=== PATIENT | male | born 1940 | race Caucasian/White ===

== ENCOUNTER 2016-08-16 13:26 | Emergency (ER) | payer MEDICARE, OTHER ==
[2016-08-16 13:59] VITALS: BP 138/70
--- NOTE | 2016-08-16 14:15 | UC ---
UC General HPI - HPI Summary HPI Summary: complaint of wound on his right lower leg scrapped it on a stump 5 days ago yesterday it started to hurt and look red denies fever ambulating increase the pain hasn't needed medication for pain - History of Current Complaint Chief Complaint: UCLowerExtremity Stated Complaint: INFLAMED WOUND ON CORDERO Time Seen by Provider: 08/16/16 14:07 Hx Obtained From: Patient - Allergy/Home Medications Allergies/Adverse Reactions: Allergies Allergy/AdvReac Type Severity Reaction Status Date / Time dust mites Allergy Intermediate post nasal Uncoded 08/16/16 13:59 drip pepper Allergy Unknown Unknown Uncoded 08/16/16 13:59 Reaction Details PMH/Surg Hx/FS Hx/Imm Hx Previously Healthy: Yes Endocrine History Of: Denies: Diabetes, Thyroid Disease Cardiovascular History Of: Denies: Cardiac Disorders, Hypertension, Pacemaker/ICD Respiratory History Of: Denies: COPD, Asthma GI/ History Of: Denies: Ulcer Psychological History Of: Reports: Depression - ON MEDICATION FOR - Surgical History Surgical History: Yes Surgery Procedure, Year, and Place: 1941 TONSILECTOMY;. 1957- HEMORROIDECTOMY; . 1992- Rt ACHILLES TENDON REPAIR;. 1997- RADICAL PROSTECTOMY;. BASAL CELLS REMOVED FROM Lt CHEEK. LEFT BICEP TENDON REATTACHMENT 2012 - Family History Known Family History: Positive: Hypertension Negative: Cardiac Disease, Diabetes - Social History Occupation: Retired Lives: With Family Alcohol Use: None Substance Use Type: None Smoking Status (MU): Never Smoked Tobacco - Immunization History Most Recent Influenza Vaccination: fall 2015 Most Recent Tetanus Shot: unknown Review of Systems Constitutional: Negative Skin: Other - cellulitis right leg Eyes: Negative ENT: Negative Respiratory: Negative Cardiovascular: Negative Gastrointestinal: Negative Genitourinary: Negative Motor: Negative Neurovascular: Negative Musculoskeletal: Negative Neurological: Negative Psychological: Negative All Other Systems Reviewed And Are Negative: Yes Physical Exam Triage Information Reviewed: Yes Appearance: No Pain Distress, Well-Nourished Vital Signs: Initial Vital Signs Temp 98.1 F 08/16/16 13:53 Pulse 61 08/16/16 13:53 Resp 12 08/16/16 13:53 BP 138/70 08/16/16 13:53 Pulse Ox 100 08/16/16 13:53 Vital Signs Reviewed: Yes Eyes: Positive: Conjunctiva Clear Neck: Positive: Supple Respiratory: Positive: Lungs clear, Normal breath sounds Cardiovascular: Positive: RRR, No Murmur Musculoskeletal: Positive: No Edema Neurological: Positive: Alert Psychological Exam: Normal Skin: Positive: Other - [id number] area of erythema surrounding scabbed over abrasion Course/Dx - Differential Dx - Multi-Symptom Provider Diagnoses: cellulitis- right lower leg Discharge - Discharge Plan Condition: Stable Disposition: HOME Prescriptions: Sulfamethox/Trimethoprim DS* [Bactrim DS 800/160 TAB*] 1 tab PO BID #14 tab Patient Education Materials: Cellulitis (ED) Referrals: Arsenio Luis MD [Primary Care Provider] - Additional Instructions: Please take antibiotic as directed. If area of redness increases, pain increases or you develop a fever please return to your primary care physician or urgent care Increase fluids and rest Take acetaminophen for fever or pain Please review your discharge instructions. If your symptoms do not improve please call your primary care provider or return to urgent care.
== END 2016-08-16 14:42 | disposition home or self-care (01) ==
LOC: UCEAST 13:26
DX: L03.115 Cellulitis of right lower limb (principal)
CPT/HCPCS: 99212; G0463

== ENCOUNTER 2016-12-15 14:12 | Emergency (ER) | payer OTHER ==
[2016-12-15 14:29] VITALS: BP 142/71
--- NOTE | 2016-12-15 15:11 | UC ---
Eye Complaint HPI - HPI Summary HPI Summary: The patient comes in today for: 1. Left eye pain: Onset: This morning. Palliative/provocative: Blinking makes it worse. Quality: Pressure. Region: Left eye. Severity: 2/10 Time: Comes and goes. Associated symptoms: Vision change: None. Discharge: None. Previous disease: He states he has blepharitis for which he uses a warm compress. Swelling of both ankles: He states that he has had a long history of this. It has gotten worse recently with a recent trip to [place]. He just got back from [place] Monday night. Most of the swelling is of the right foot. It is worse than before. * - History of Current Complaint Chief Complaint: UCEye Stated Complaint: EYE ISSUE Time Seen by Provider: 12/15/16 14:56 Hx Obtained From: Patient - Allergies/Home Medications Allergies/Adverse Reactions: Allergies Allergy/AdvReac Type Severity Reaction Status Date / Time dust mites Allergy Intermediate post nasal Uncoded 12/15/16 14:29 drip pepper Allergy Unknown Unknown Uncoded 12/15/16 14:29 Reaction Details PMH/Surg Hx/FS Hx/Imm Hx Previously Healthy: No Endocrine History Of: Denies: Diabetes, Thyroid Disease, Hyperthyroidism, Hypothyroidism, Dyslipidemia Cardiovascular History Of: Denies: Cardiac Disorders, Hypertension, Pacemaker/ICD, Myocardial Infarction , Congestive Heart Failure, Atrial Fibrillation, Deep Vein Thrombosis, Bleeding Disorders Respiratory History Of: Denies: COPD, Asthma, Bronchitis, Pneumonia, Pulmonary Embolism GI/ History Of: Denies: Gastroesophageal Reflux, Ulcer, Gastrointestinal Bleed, Gall Bladder Disease, Kidney Stones, Diverticulitis, Renal Disease, Urosepsis Neurological History Of: Denies: TIA, CVA, Dementia, Seizures, Migraine Psychological History Of: Reports: Depression - ON MEDICATION FOR Denies: Anxiety, Bipolar Disorder, Schizophrenia, Post Traumatic Stress Disorder Cancer History Of: Reports: Prostate Cancer - He had a prostatectomy. Denies: Lung Cancer, Colorectal Cancer, Breast Cancer, Cervical Cancer Other History Of: Anticoagulant Therapy - Aspirin daily. Negative For: HIV, Hepatitis B, Hepatitis C - Surgical History Surgical History: Yes Surgery Procedure, Year, and Place: 1941 TONSILECTOMY;. 1957- HEMORROIDECTOMY; . 1992- Rt ACHILLES TENDON REPAIR;. 1997- RADICAL PROSTECTOMY;. BASAL CELLS REMOVED FROM Lt CHEEK. LEFT BICEP TENDON REATTACHMENT 2012. Bilateral cataract surgery. - Family History Known Family History: Positive: Hypertension Negative: Cardiac Disease, Diabetes - Social History Occupation: Employed Full-time Alcohol Use: None Substance Use Type: None Smoking Status (MU): Never Smoked Tobacco - Immunization History Most Recent Influenza Vaccination: fall 2015 Most Recent Tetanus Shot: unknown Review of Systems Constitutional: Negative Skin: Negative Eyes: Negative ENT: Negative Respiratory: Negative Cardiovascular: Negative Gastrointestinal: Negative Genitourinary: Negative Motor: Negative All Other Systems Reviewed And Are Negative: Yes Physical Exam Triage Information Reviewed: Yes Appearance: Well-Appearing, No Pain Distress, Well-Nourished Vital Signs: Initial Vital Signs Temp 96.9 F 12/15/16 14:20 Pulse 67 12/15/16 14:20 Resp 14 12/15/16 14:20 BP 142/71 12/15/16 14:20 Pulse Ox 98 12/15/16 14:20 Vital Signs Reviewed: Yes Eyes: Positive: Conjunctiva Clear, Other: - No redness or swelling of either upper or lower eye lids. There is minimal tenderness along the lower lateral left eye lid.. Negative: Discharge ENT: Positive: Hearing grossly normal. Negative: Pharyngeal erythema, Nasal congestion, Nasal drainage, TM bulging, TM dull, TM red, Tonsillar swelling, Tonsillar exudate Dental: Negative: Gross Decay/Caries @, Dental Fracture @ Neck: Positive: Supple, Nontender, No Lymphadenopathy. Negative: Nuchal Rigidity Respiratory: Positive: Chest non-tender, Lungs clear, No respiratory distress, No accessory muscle use. Negative: Rhonchi, Wheezing Cardiovascular: Positive: RRR, No Murmur Abdomen Description: Positive: Nontender, No Organomegaly, Soft. Negative: Distended, Guarding Musculoskeletal: Positive: Strength Intact, ROM Intact, No Edema, Other: - Right leg: No obvious edema that is more than what I would expect in a 76 year old man. Calf circumference at 28 cm up from the medial malleolus: 39. There is tenderness to palpation of the right calf posteriorly, but not behind the knee or of the inner middle thigh. Left leg: No obvious edema that is more than waht I would expect for a 76 year old man. Calf circumference at 28 cm up from medial malleolus) was 38.5 cm. Neurological: Positive: Alert, Muscle Tone Normal Psychological: Positive: Age Appropriate Behavior, Consolable Skin: Negative: rashes, breakdown Eye Complaint Course/Dx - Course Course Of Treatment: Patient was told that we are not able to rule out a DVT here and recommended that he go to the ER. He refused. He was told that I did not see evidence for a stye, but if it goyal develop and it drains inward causing the white part of the eye to turn red, antibiotic drops may be helpful. He stated that he would like antibiotic eye drops in the event this develops. - Differential Dx/Diagnosis Differential Diagnosis/HQI/PQRI: Conjunctivitis Provider Diagnoses: Early stye left lower lateral eye lid. rule out Right DVT of the lower leg. Discharge - Discharge Plan Condition: Stable Disposition: HOME Patient Education Materials: Stye (ED) Referrals: No Primary Care Phys,NOPCP [Primary Care Provider] - 1 Week (Please see your primary care provider in several days to a week to see how well you are doing. If you don't have a primary care provider, please contact the physicians referral phone line to help you get one. If you can't get in timely, you can always come back to see us.) [facility] [Outside] Additional Instructions: If you are not going to the ER as requested to be evaluated for a possible blood clot in your right lower leg, please re-consider if you get worse. If you don't go to the ER, please see your primary care provider as soon as you can for re-evaluation.
== END 2016-12-15 15:40 | disposition left against medical advice (07) ==
LOC: UCEAST 14:12
DX: H00.015 Hordeolum externum left lower eyelid (principal); M79.89 Other specified soft tissue disorders; M79.661 Pain in right lower leg; Z79.82 Long term (current) use of aspirin; F32.9 Major depressive disorder, single episode, unspecified
CPT/HCPCS: 99213; G0463

== ENCOUNTER 2017-03-07 10:06 | Emergency (ER) | payer OTHER ==
[2017-03-07 10:43] VITALS: BP 150/69
--- NOTE | 2017-03-07 12:57 | UC ---
Skin Complaint HPI - HPI Summary HPI Summary: TWO DAYS OF PAIN AND SWELLING AROUND RIGHT THUMBNAIL. NO FEVER. NO DISCHARGE. NO KNOWN TRAUMA - History of Current Complaint Chief Complaint: UCSkin Time Seen by Provider: 03/07/17 11:20 Stated Complaint: RED AREA ON THUMB Hx Obtained From: Patient, Family/Account Administrator Onset/Duration: Gradual Onset, Lasting Days, Still Present Skin Exposure Onset/Duration: Days Ago Onset Severity: Mild Current Severity: Mild Pain Intensity: 0 Pain Scale Used: 0-10 Numeric Location: Discrete - RIGHT THUMB NAIL Character: Swelling, Redness, Raised Aggravating: Nothing Alleviating: Nothing Associated Signs & Symptoms: Positive: Tenderness, Red Streaks. Negative: Fever , Chills, Cough, Wheezing, Chest Pain, Hoarseness, Throat Tightening, Rash, Syncope, Drainage, Joint Swelling - Allergy/Home Medications Allergies/Adverse Reactions: Allergies Allergy/AdvReac Type Severity Reaction Status Date / Time dust mites Allergy Intermediate post nasal Uncoded 03/07/17 10:36 drip pepper Allergy Unknown Unknown Uncoded 03/07/17 10:36 Reaction Details Review of Systems Constitutional: Negative Skin: Other - TENDERNESS SWELLING REDNESS AT CUTUCLE OF RIGHT THUMBNAIL Eyes: Negative ENT: Negative Respiratory: Negative Cardiovascular: Negative Gastrointestinal: Negative Genitourinary: Negative Motor: Negative Neurovascular: Negative Musculoskeletal: Negative Neurological: Negative Psychological: Negative All Other Systems Reviewed And Are Negative: Yes PMH/Surg Hx/FS Hx/Imm Hx Previously Healthy: Yes Other History Of: Anticoagulant Therapy - Aspirin daily. Negative For: HIV, Hepatitis B, Hepatitis C - Surgical History Surgical History: Yes Surgery Procedure, Year, and Place: 1941 TONSILECTOMY;. 1957- HEMORROIDECTOMY; . 1992- Rt ACHILLES TENDON REPAIR;. 1997- RADICAL PROSTECTOMY;. BASAL CELLS REMOVED FROM Lt CHEEK. LEFT BICEP TENDON REATTACHMENT 2012. Bilateral cataract surgery. - Family History Known Family History: Positive: Hypertension Negative: Cardiac Disease, Diabetes - Social History Occupation: Employed Full-time Lives: With Family Alcohol Use: None Substance Use Type: None Smoking Status (MU): Never Smoked Tobacco - Immunization History Most Recent Influenza Vaccination: fall 2015 Most Recent Tetanus Shot: unknown Physical Exam Triage Information Reviewed: Yes Appearance: Well-Appearing, No Pain Distress, Well-Nourished Vital Signs: Initial Vital Signs Temp 97.8 F 03/07/17 10:37 Pulse 50 03/07/17 10:37 Resp 16 03/07/17 10:37 BP 150/69 03/07/17 10:37 Pulse Ox 99 03/07/17 10:37 Vital Signs Reviewed: Yes Eye Exam: Normal ENT Exam: Normal ENT: Positive: Normal ENT inspection, Hearing grossly normal, Pharynx normal, TMs normal Dental Exam: Normal Neck exam: Normal Neck: Positive: Supple, Nontender, No Lymphadenopathy Respiratory Exam: Normal Respiratory: Positive: Chest non-tender, Lungs clear, Normal breath sounds, No respiratory distress Cardiovascular Exam: Normal Cardiovascular: Positive: RRR, No Murmur, Pulses Normal Abdominal Exam: Normal Musculoskeletal Exam: Normal Musculoskeletal: Positive: Strength Intact, ROM Intact, No Edema Neurological Exam: Normal Psychological Exam: Normal Psychological: Positive: Normal Response To Family Skin: Positive: Other - TENDERNESS SWELLING REDNESS AT CUTUCLE OF RIGHT THUMBNAIL Course/Dx - Differential Diagnoses - Skin Complaint Differential Diagnoses: Abscess, Cellulitis, Impetigo - Diagnoses Provider Diagnoses: RIGHT THUMB PARONYCHIA Discharge - Discharge Plan Condition: Stable Disposition: HOME Prescriptions: Amoxicillin/Clavulanate TAB* [Augmentin TAB 875*] 875 mg PO BID #20 tab Patient Education Materials: Paronychia (ED) Referrals: [facility] [Outside] No Primary Care Phys,NOPCP [Primary Care Provider] -
== END 2017-03-07 12:06 | disposition home or self-care (01) ==
LOC: UCEAST 10:06
DX: L03.011 Cellulitis of right finger (principal); Z79.82 Long term (current) use of aspirin; Z85.828 Personal history of other malignant neoplasm of skin
CPT/HCPCS: 10060; 87070; 87077; 87186; 87205; 99212; G0463

== ENCOUNTER 2017-04-23 15:22 | Emergency (ER) | payer OTHER ==
[2017-04-23 15:42] VITALS: BP 134/70
--- NOTE | 2017-04-23 16:08 | UC ---
Eye Complaint HPI - HPI Summary HPI Summary: 77 YEAR OLD MALE PRESENTS WITH BILATERAL EYE REDNESS/ITCHINESS AND TEARING. - History of Current Complaint Chief Complaint: UCEye Stated Complaint: EYE IRRITATION Time Seen by Provider: 04/23/17 16:03 Hx Obtained From: Patient Onset/Duration: Sudden Onset Timing: Constant Severity Initially: Moderate Severity Currently: Moderate Pain Scale Used: 0-10 Numeric - 2 Location of Injury: Conjunctiva - Allergies/Home Medications Allergies/Adverse Reactions: Allergies Allergy/AdvReac Type Severity Reaction Status Date / Time dust mites Allergy Intermediate post nasal Uncoded 04/23/17 15:43 drip pepper Allergy Unknown Unknown Uncoded 04/23/17 15:43 Reaction Details PMH/Surg Hx/FS Hx/Imm Hx Previously Healthy: Yes Other History Of: Anticoagulant Therapy - Aspirin daily. Negative For: HIV, Hepatitis B, Hepatitis C - Surgical History Surgical History: Yes Surgery Procedure, Year, and Place: 1941 TONSILECTOMY;. 1957- HEMORROIDECTOMY; . 1992- Rt ACHILLES TENDON REPAIR;. 1997- RADICAL PROSTECTOMY;. BASAL CELLS REMOVED FROM Lt CHEEK. LEFT BICEP TENDON REATTACHMENT 2012. Bilateral cataract surgery. - Family History Known Family History: Positive: Hypertension Negative: Cardiac Disease, Diabetes - Social History Alcohol Use: Rare Substance Use Type: Prescribed Smoking Status (MU): Never Smoked Tobacco - Immunization History Most Recent Influenza Vaccination: fall 2015 Most Recent Tetanus Shot: unknown Review of Systems Constitutional: Negative Skin: Negative Eyes: Drainage, Eye Redness ENT: Negative Respiratory: Negative Cardiovascular: Negative Gastrointestinal: Negative Genitourinary: Negative Motor: Negative Neurovascular: Negative Musculoskeletal: Negative Neurological: Negative Psychological: Negative All Other Systems Reviewed And Are Negative: Yes Physical Exam Triage Information Reviewed: Yes Appearance: Well-Appearing Vital Signs: Initial Vital Signs Temp 36.9 C 04/23/17 15:38 Pulse 95 04/23/17 15:38 Resp 18 04/23/17 15:38 BP 134/70 04/23/17 15:38 Pulse Ox 99 04/23/17 15:38 Vital Signs Reviewed: Yes Eyes: Positive: Conjunctiva Inflamed, Discharge ENT Exam: Normal Dental Exam: Normal Neck exam: Normal Neck: Positive: 1 Respiratory Exam: Normal Cardiovascular Exam: Normal Abdominal Exam: Normal Musculoskeletal Exam: Normal Neurological Exam: Normal Psychological Exam: Normal Skin Exam: Normal Eye Complaint Course/Dx - Differential Dx/Diagnosis Provider Diagnoses: ALLERGIC CONJUNCTIVITIS Discharge - Discharge Plan Condition: Stable Disposition: HOME Prescriptions: Tobramycin/Dexameth OPTH.SUSP* [Tobradex 0.3-0.1%*] 1 drop BOTH EYES Q4H #1 btl Referrals: Pippa Peters MD [Primary Care Provider] -
== END 2017-04-23 16:17 | disposition home or self-care (01) ==
LOC: UCEAST 15:22
DX: H10.10 Acute atopic conjunctivitis, unspecified eye (principal)
CPT/HCPCS: 99212; G0463

== ENCOUNTER 2017-07-08 10:48 | Emergency (ER) | payer OTHER ==
[2017-07-08 11:04] VITALS: BP 128/67
--- NOTE | 2017-07-08 11:42 | UC ---
Matteo Mckeon Thomas, [facility] on 07/08/17 at 1114 . Skin Complaint HPI - HPI Summary HPI Summary: In Room Note: The patient is a 77 year old male presenting to Urgent Care with concerns for cellulitis. He suspects that he nicked his finger a few weeks ago. He has a small scab to the base of his left index finger as well as a small mildly erythematous area. The patient denies any pain to the area--no pain at rest or with movement. However, he does note that the area feels warm. Patient denies nausea, vomiting, and diarrhea. MD Note: Left hand injury. VSS, afebrile, BP 128/68, Pulse Ox 100. Non-smoker. Visit history: paronychia right thumbnail in February 2017, treated with Augmentin. Prostatectomy. He is on aspirin. Nurses Note: he states that he thinks he has cellulitis. he knicked his left hand a few eeks ago. there is a scab and a bruise. - History of Current Complaint Chief Complaint: UCSkin Time Seen by Provider: 07/08/17 11:06 Stated Complaint: SWOLLEN BRUISED LEFT HAND Hx Obtained From: Patient Onset/Duration: Lasting Weeks - a few, Still Present Timing: Constant Current Severity: Moderate Pain Intensity: 0 Pain Scale Used: 0-10 Numeric Location: Other - Index finger of left hand Character: Redness Aggravating Factor(s): Nothing Alleviating Factor(s): Nothing Associated Signs & Symptoms: Negative: Nausea, Vomiting - Allergy/Home Medications Allergies/Adverse Reactions: Allergies Allergy/AdvReac Type Severity Reaction Status Date / Time dust mites Allergy Intermediate post nasal Uncoded 07/08/17 11:04 drip pepper Allergy Unknown Unknown Uncoded 07/08/17 11:04 Reaction Details Review of Systems Constitutional: Other - NEGATIVE: fever Skin: Other - Small scab, small area of erythema to left index finger Is Patient Immunocompromised?: No All Other Systems Reviewed And Are Negative: Yes - Comments Additional Review of Systems Comments: A 12 point review of systems was completed and significantly positive for: small scab and area of erythema. The remainder of the review was negative except as stated above in the HPI. PMH/Surg Hx/FS Hx/Imm Hx Previously Healthy: No - Paronychia, Prostate Cancer Psychological History: Depression Other History Of: Anticoagulant Therapy - Aspirin daily. Negative For: HIV, Hepatitis B, Hepatitis C - Surgical History Surgical History: Yes Surgery Procedure, Year, and Place: 1941 TONSILECTOMY;. 1957- HEMORROIDECTOMY; . 1992- Rt ACHILLES TENDON REPAIR;. 1997- RADICAL PROSTECTOMY;. BASAL CELLS REMOVED FROM Lt CHEEK. LEFT BICEP TENDON REATTACHMENT 2012. Bilateral cataract surgery. - Family History Known Family History: Positive: Hypertension Negative: Cardiac Disease, Diabetes - Social History Occupation: Employed Full-time Alcohol Use: Rare Substance Use Type: Prescribed Smoking Status (MU): Never Smoked Tobacco - Immunization History Most Recent Influenza Vaccination: fall 2015 Most Recent Tetanus Shot: unknown Physical Exam Triage Information Reviewed: Yes Vital Signs: Initial Vital Signs Temp 97.2 F 07/08/17 11:00 Pulse 60 07/08/17 11:00 Resp 16 07/08/17 11:00 BP 128/67 07/08/17 11:00 Pulse Ox 100 07/08/17 11:00 Vital Signs Reviewed: Yes - Additional Comments Appearance: The patient is well-appearing, is in no pain distress, and is well- nourished. Eyes: Conjunctiva are clear. ENT: The hearing is grossly normal, the pharynx is normal, and the TMs are normal. There is no muffled or hoarse voice. Neck: The neck is supple and nontender. Respiratory: The chest is nontender. The lungs are clear, there are normal breath sounds, and there is no respiratory distress. Cardiovascular: Heart is regular rate and rhythm. There is no murmur. Abdomen: The abdomen is soft and nontender. There is no organomegaly. Bowel sounds: present Musculoskeletal: Strength is intact. The patient moves all extremities. Neurological: The patient is alert. Psychological: The patient displays age appropriate behavior Skin: There is a 3.0 cm mildly erythematous area over the radial aspect of the proximal phalanx of the left index finger. There is a 3.0 mm crusted lesion over the dorsum of the MCP joint. There is no evidence of extension to the flexor tendons or ascending cellulitis or lymphangitis. Course/Dx - Course Course Of Treatment: The area in question on the left index finger is mildly erythematous, but I discussed with the patient that this may not be cellulitis. He does have Raynauds phenomenon, and this mildly erythematous area may be related to that. However, because of the patients previous history of cellulitis and paronychia, I started the patient on Keflex for five days and instructed him to do warm soaks if the erythema is not resolved. Patient is Urgent/Emergent. BP elevated due to current condition w/o HTN in past medical history. Patient has been given an antibiotic because findings of physical examination and health history. The risks and benefits of these risks including the possibility of developing clostridium difficile enterocolitis. Medications have been included in the original chart and reviewed. - Differential Diagnoses - Skin Complaint Differential Diagnoses: Cellulitis, Other - Raynaud's phenomenon, contusion - Diagnoses Provider Diagnoses: Localized cellulitis, left index finger Discharge - Discharge Plan Condition: Stable Disposition: HOME Prescriptions: Cephalexin CAP* [Keflex 500 CAP*] 500 mg PO QID #20 cap MDD 4 Patient Education Materials: Cellulitis (ED), Raynaud Disease (ED) Referrals: Pippa Peters MD [Primary Care Provider] - Additional Instructions: Thank you for helping us improve patient care by filling out the My Point Survey. WE DISCUSSED: 1. Based on your examination and history of previous cellulitis, I recommend that you start an antibiotic, 4 times a day for 5 days. Also, warm, moist heat to the area. 2. This should resolve over the next few days. If not, it may be related to your Raynaud's. It should be rechecked if still present in a week. 3. Recheck at any time for increased pain, temperature, swelling, redness, red lines going up arm, decreasing ability to move your finger. PLEASE SEEK CARE AT THE EMERGENCY DEPARTMENT IF SYMPTOMS WORSEN OR IF NEW SYMPTOMS DEVELOP. FOLLOW UP WITH YOUR PRIMARY CARE PHYSICIAN, NEEDED. The documentation as recorded by the Matteo leos Thomas accurately reflects the service I personally performed and the decisions made by , Alfredo Jaramillo MD.
== END 2017-07-08 11:45 | disposition home or self-care (01) ==
LOC: UCEAST 10:48 → CHOAEAST 10:48
DX: L03.012 Cellulitis of left finger (principal)
CPT/HCPCS: 99212; G0463

== ENCOUNTER 2018-06-01 10:25 | Emergency (ER) | payer OTHER ==
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
[2018-06-01 13:34] VITALS: BP 142/70
== END 2018-06-01 14:10 | disposition home health service (06) ==
LOC: UCEAST 10:25
DX: M79.89 Other specified soft tissue disorders (principal); Z91.018 Allergy to other foods; Z91.048 Other nonmedicinal substance allergy status; Z79.82 Long term (current) use of aspirin
CPT/HCPCS: 99212; G0463

== ENCOUNTER 2018-06-01 14:34 | Emergency (ER) | payer OTHER ==
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
[2018-06-01 18:24] VITALS: BP 128/79
== END 2018-06-01 18:00 | disposition home or self-care (01) ==
LOC: ED 14:34
DX: S89.91XA Unspecified injury of right lower leg, initial encounter (principal); S80.211A Abrasion, right knee, initial encounter; S09.90XA Unspecified injury of head, initial encounter; V09.9XXA Pedestrian injured in unspecified transport accident, initial encounter; Y93.01 Activity, walking, marching and hiking; Y92.410 Unspecified street and highway as the place of occurrence of the external cause
CPT/HCPCS: 70450; 99282

== ENCOUNTER 2018-06-06 15:17 | Inpatient (IN) | payer MEDICARE, OTHER ==
[2018-06-06] MEDS ORDERED: Acetaminophen TAB* 325 MG PO PRN (17:13)
[2018-06-06 17:35] LABS: ABS Basophils 0.1 10^3/ul (0-0.2); ABS Eosinophils 0.2 10^3/ul (0-0.6); ABS Lymphocytes 1.1 10^3/ul (1.0-4.8); ABS Monocytes 0.9 10^3/ul (0-0.8); ABS Neutrophils 6.2 10^3/ul (1.5-7.7); ABS Nucleated RBC 0 10^3/ul; Eosinophil % 1.8 % (0-6); Hematocrit 42 % (42-52); Hemoglobin 14.6 g/dl (14.0-18.0); Lymphocyte % 13.5 % (25-47); Mean Corpuscular HGB Conc 35 g/dl (31-36); Mean Corpuscular Hemoglobin 31 pg (27-31); Mean Corpuscular Volume 88 fL (80-94); Mean Platelet Volume 9.3 fL (7.4-10.4); Nucleated Red Blood Cells % 0.1; Platelet Count 138 10^3/ul (150-450); Red Blood Count 4.73 10^6/ul (4.00-5.40); Red Cell Distribution Width 14 % (10.5-15); White Blood Count 8.4 10^3/ul (3.5-10.8)
[2018-06-06 17:54] LABS: EGFR Non-African American 78.4 (>60)
[2018-06-06] MEDS ORDERED: traMADol TAB* 50 MG PO PRN (18:22)
[2018-06-06] MEDS ORDERED: Ondansetron INJ* 2 MG/ML VIAL IV PRN (18:22)
[2018-06-06] MEDS ORDERED: Vancomycin(*) 1,500 MG in NS 0.9% 250 ML* 250 ML IVPB ONE (18:45)
[2018-06-06] MEDS ORDERED: Vancomycin per Pharmacy* NOTE FOLLOW UP SCH (19:00)
[2018-06-06] MEDS: NS 0.9% 1000 ML* 1,000 ML IV SCH (19:02)
[2018-06-06 19:46] LABS: Urine Appearance Clear; Urine Blood Negative (Negative); Urine Color Yellow; Urine Ketones Negative (Negative); Urine Protein Negative (Negative); Urine Specific Gravity 1.011 (1.010-1.030); Urine Urobilinogen Negative (Negative)
[2018-06-06 20:11] LABS: INR 0.86 (0.77-1.02)
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
[2018-06-06] MEDS: Heparin VIAL(*) 5000 UNITS/ML VIAL (FIVE THOUSAND) SUBCUT SCH (22:06)
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
[2018-06-07] MEDS: Vancomycin(*) 750 MG in NS 0.9% 250 ML* 250 ML IVPB SCH ×4 (04:23→21:58)
[2018-06-07] MEDS: Heparin VIAL(*) 5000 UNITS/ML VIAL (FIVE THOUSAND) SUBCUT SCH ×3 (06:13→21:58)
[2018-06-07] MEDS: buPROPion SR TAB.SR* 150 MG PO SCH (07:48)
[2018-06-07] MEDS: Sertraline* 50 MG TAB PO SCH (07:48)
--- NOTE | 2018-06-07 12:27 | PN ---
Progress Note - Progress Note Date of Service: 06/07/18 SOAP: Subjective: []Patient seen and examined at bedside. He feels well with self reported drastic improvement of redness, pain and swelling. Denies fever or chills. Objective: []General: Well appearing, NAD RLE: Anterior knee with moderate edema and minimal erythema, + abrasions over patella healing well. PROM 0-100 without pain. Calves supple and nontender without erythema, edema or palpable cords Assessment: []right prepatellar bursitis and cellulitis Plan: []WBAT can eat today, will make NPO at midnight again to watch cultures tomorrow. Vital Signs Temp 98.2 F 06/07/18 07:25 Pulse 58 06/07/18 07:25 Resp 18 06/07/18 08:00 BP 131/62 06/07/18 07:25 Pulse Ox 93 06/07/18 08:00 Intake & Output 06/06/18 06/07/18 06/07/18 18:59 06:59 18:59 Intake Total 570 Balance 570 Weight 180 lb Intake: IV Fluids 570 Oral 0 Other: Estimated Void Medium # Bowel Movements 0 # Voids 1 Laboratory Last Values WBC 8.4 10^3/ul (3.5-10.8) 06/06/18 17:27 RBC 4.73 10^6/ul (4.00-5.40) 06/06/18 17:27 Hgb 14.6 g/dl (14.0-18.0) 06/06/18 17:27 Hct 42 % (42-52) 06/06/18 17:27 MCV 88 fL (80-94) 06/06/18 17:27 MCH 31 pg (27-31) 06/06/18 17:27 MCHC 35 g/dl (31-36) 06/06/18 17:27 RDW 14 % (10.5-15) 06/06/18 17:27 Plt Count 138 10^3/ul (150-450) L 06/06/18 17:27 MPV 9.3 fL (7.4-10.4) 06/06/18 17:27 Neut % (Auto) 73.2 % (38-83) 06/06/18 17:27 Lymph % (Auto) 13.5 % (25-47) L 06/06/18 17:27 [place] % (Auto) 10.4 % (0-7) H 06/06/18 17:27 Eos % (Auto) 1.8 % (0-6) 06/06/18 17:27 Baso % (Auto) 1.1 % (0-2) 06/06/18 17:27 Absolute Neuts (auto) 6.2 10^3/ul (1.5-7.7) 06/06/18 17:27 Absolute Lymphs (auto) 1.1 10^3/ul (1.0-4.8) 06/06/18 17:27 Absolute Monos (auto) 0.9 10^3/ul (0-0.8) H 06/06/18 17:27 Absolute Eos (auto) 0.2 10^3/ul (0-0.6) 06/06/18 17:27 Absolute Basos (auto) 0.1 10^3/ul (0-0.2) 06/06/18 17: Absolute Nucleated RBC 0 10^3/ul 06/06/18 17:27 Nucleated RBC % 0.1 06/06/18 17:27 ESR 20 mm/Hr (0-40) 06/06/18 17:27 INR (Anticoag Therapy) 0.86 (0.77-1.02) 06/06/18 19:41 APTT 30.3 seconds (26.0-36.3) 06/06/18 19:41 Sodium 134 mmol/L (135-145) L 06/06/18 17:27 Potassium 3.9 mmol/L (3.5-5.0) 06/06/18 19:41 Chloride 101 mmol/L (101-111) 06/06/18 17:27 Carbon Dioxide 28 mmol/L (22-32) 06/06/18 17:27 Anion Gap 5 mmol/L (2-11) 06/06/18 17:27 BUN 16 mg/dL (6-24) 06/06/18 17:27 Creatinine 0.93 mg/dL (0.67-1.17) 06/06/18 17:27 Est GFR ( Amer) 94.8 (>60) 06/06/18 17:27 Est GFR (Non-Af Amer) 78.4 (>60) 06/06/18 17:27 BUN/Creatinine Ratio 17.2 (8-20) 06/06/18 17:27 Glucose 145 mg/dL (70-100) H 06/06/18 17:27 Lactic Acid 0.5 mmol/L (0.5-2.0) 06/06/18 19:41 Calcium 9.2 mg/dL (8.6-10.3) 06/06/18 17:27 Total Bilirubin 0.70 mg/dL (0.2-1.0) 06/06/18 17:27 AST 20 U/L (13-39) 06/06/18 19:41 ALT 18 U/L (7-52) 06/06/18 17:27 Alkaline Phosphatase 56 U/L (34-104) 06/06/18 17:27 C-Reactive Protein 11.75 mg/L (<8.01) H 06/06/18 17:27 Total Protein 6.8 g/dL (6.4-8.9) 06/06/18 17:27 Albumin 4.3 g/dL (3.2-5.2) 06/06/18 17:27 Globulin 2.5 g/dL (2-4) 06/06/18 17:27 Albumin/Globulin Ratio 1.7 (1-3) 06/06/18 17:27 Urine Color Yellow 06/06/18 19:00 Urine Appearance Clear 06/06/18 19:00 Urine pH 5.0 (5-9) 06/06/18 19:00 Ur Specific [place] 1.011 (1.010-1.030) 06/06/18 19:00 Urine Protein Negative (Negative) 06/06/18 19:00 Urine Ketones Negative (Negative) 06/06/18 19:00 Urine Blood Negative (Negative) 06/06/18 19:00 Urine Nitrate Negative (Negative) 06/06/18 19:00 Urine Bilirubin Negative (Negative) 06/06/18 19:00 Urine Urobilinogen Negative (Negative) 06/06/18 19:00 Ur Leukocyte Esterase Negative (Negative) 06/06/18 19:00 Urine Glucose Negative (Negative) 06/06/18 19:00
[2018-06-07] MEDS: NS 0.9% 1000 ML* 1,000 ML IV SCH (12:32)
--- NOTE | 2018-06-07 17:32 | PN ---
Subjective Date of Service: 06/07/18 Interval History: Patient reports that his right knee is feeling better. states that the redness has improved and the swelling is slightly improved. denies chest pain or shortness of breath. denies abd pain n/v/d. denies fever or chills Family History: Unchanged from Admission Social History: Unchanged from Admission Past Medical History: Unchanged from Admission Objective Active Medications: Acetaminophen (Tylenol Tab*) 650 mg PO Q6H PRN PRN Reason: pain/fever Bupropion HCl (Wellbutrin Sr Tab*) 150 mg PO DAILY [facility] Last Admin: 06/07/18 07:48 Dose: 150 mg Heparin Sodium (Porcine) (Heparin Vial(*)) 5,000 units SUBCUT Q8HR [facility] Last Admin: 06/07/18 15:03 Dose: 5,000 units Sodium Chloride (Ns 0.9% 1000 Ml*) 1,000 mls @ 75 mls/hr IV PER RATE [facility] Last Admin: 06/07/18 12:32 Dose: 75 mls/hr Vancomycin HCl 750 mg/ Sodium (Chloride) 250 mls @ 166.667 mls/hr IVPB Q8H [facility] Last Admin: 06/07/18 12:32 Dose: 166.667 mls/hr Ondansetron HCl (Zofran Inj*) 4 mg IV Q6H PRN PRN Reason: NAUSEA Pharmacy Consult (Vancomycin Per Pharmacy*) 1 note FOLLOW UP .VANC PER PHARMACY [facility] Pharmacy Profile Note (Vancomycin Trough Check) 1 note FOLLOW UP 1999 Stop: 06/07/18 20:01 Sertraline HCl (Zoloft*) 150 mg PO QAM [facility] Last Admin: 06/07/18 07:48 Dose: 150 mg Tramadol HCl (Ultram*) 50 mg PO Q6H PRN PRN Reason: PAIN Vital Signs - 8 hr 06/07/18 06/07/18 11:13 13:36 Temperature 97.8 F 95.7 F Pulse Rate 60 67 Respiratory 20 16 Rate Blood Pressure 125/60 133/66 (mmHg) O2 Sat by Pulse 98 97 Oximetry Oxygen Devices in Use Now: None Appearance: appears comfortable resting in bed. no acute distress Eyes: No Scleral Icterus Ears/Nose/Mouth/Throat: Clear Oropharnyx, Mucous Membranes Moist Neck: NL Appearance and Movements; NL JVP, Trachea Midline Respiratory: Symmetrical Chest Expansion and Respiratory Effort, Clear to Auscultation Cardiovascular: NL Sounds; No Murmurs; No JVD, No Edema Abdominal: NL Sounds; No Tenderness; No Distention Extremities: No Edema, No Clubbing, Cyanosis Skin: No Rash or Ulcers - redness and swelling noted to right knee, small abrasion noted to knee Neurological: Alert and Oriented x 3 Nutrition: Taking PO's Result Diagrams: 06/08/18 06:39 06/08/18 06:39 Microbiology and Other Data: Microbiology 06/06/18 20:40 Gram Stain - Final Body Fluid Body Fluid Culture - Preliminary No Growth Day 1 Assess/Plan/Problems-Billing Assessment: Mr. Smallwood is a 78 y.o male with a hx of depression who prented to right knee pain, redness and swelling. - Patient Problems (1) Knee pain Current Visit: Yes Status: Acute Code(s): M25.569 - PAIN IN UNSPECIFIED KNEE SNOMED Code(s): 75027049 Comment: right knee with abrasion, redness and swelling- suspect this is r/t cellulitis and possible bursitis seen by ortho Dr. pérez- knee joint fluid aspirated - sent for culture - no growth x1 day - will continue antibiotics - vanco mycin for treatment of cellulitis (2) Depression Current Visit: Yes Status: Chronic Code(s): F32.9 - MAJOR DEPRESSIVE DISORDER, SINGLE EPISODE, UNSPECIFIED SNOMED Code(s): 77719469 Comment: continue home medications supportive care (3) DVT prophylaxis Current Visit: Yes Status: Acute Code(s): KOI8919 - SNOMED Code(s): 543627343 Comment: heparin subQ (4) Full code status Current Visit: Yes Status: Acute Code(s): Z78.9 - OTHER SPECIFIED HEALTH STATUS SNOMED Code(s): 966666501 Status and Disposition: discharge home when medically stable
[2018-06-07] MEDS ORDERED: Vancomycin Trough Check NOTE FOLLOW UP ONE (20:00)
[2018-06-07] MEDS: Vancomycin(*) 1,000 MG in NS 0.9% 250 ML* 250 ML IVPB SCH (22:08)
[2018-06-08] MEDS: Vancomycin(*) 1,000 MG in NS 0.9% 250 ML* 250 ML IVPB SCH ×2 (05:24→14:03)
[2018-06-08] MEDS: Heparin VIAL(*) 5000 UNITS/ML VIAL (FIVE THOUSAND) SUBCUT SCH ×3 (05:26→21:14)
[2018-06-08] MEDS: NS 0.9% 1000 ML* 1,000 ML IV SCH ×2 (05:28→22:46)
[2018-06-08 06:57] LABS: ABS Basophils 0.1 10^3/ul (0-0.2); ABS Eosinophils 0.2 10^3/ul (0-0.6); ABS Lymphocytes 1.2 10^3/ul (1.0-4.8); ABS Monocytes 0.8 10^3/ul (0-0.8); ABS Nucleated RBC 0 10^3/ul; Eosinophil % 2.7 % (0-6); Hematocrit 38 % (42-52); Hemoglobin 13.1 g/dl (14.0-18.0); Mean Corpuscular HGB Conc 35 g/dl (31-36); Mean Corpuscular Hemoglobin 31 pg (27-31); Mean Corpuscular Volume 88 fL (80-94); Mean Platelet Volume 8.8 fL (7.4-10.4); Nucleated Red Blood Cells % 0.1; Platelet Count 108 10^3/ul (150-450); Red Blood Count 4.25 10^6/ul (4.00-5.40); Red Cell Distribution Width 14 % (10.5-15); White Blood Count 6.2 10^3/ul (3.5-10.8)
[2018-06-08 07:14] LABS: EGFR Non-African American 84.6 (>60)
[2018-06-08] MEDS: Sertraline* 50 MG TAB PO SCH (09:15)
[2018-06-08] MEDS: buPROPion SR TAB.SR* 150 MG PO SCH (09:15)
--- NOTE | 2018-06-08 14:36 | PN ---
Progress Note - Progress Note Date of Service: 06/08/18 SOAP: Subjective: []Patient walking in hallway upon arrival to his room today. He feels there has been improvement in the redness, swelling and pain, anterior right knee. He is asking if he can eat lunch. Objective: [] Vital Signs Temp 97.9 F 06/08/18 11:37 Pulse 57 06/08/18 11:37 Resp 16 06/08/18 11:37 BP 136/62 06/08/18 11:37 Pulse Ox 96 06/08/18 11:37 Intake & Output 06/07/18 06/08/18 06/08/18 18:59 06:59 18:59 Intake Total 885 1240 250 Balance 885 1240 250 Intake: IV Fluids 1000 250 IVPB 275 Oral 610 240 Other: Estimated Void Medium # Bowel Movements 0 # Voids 1 Laboratory Results - last 24 hr 06/07/18 06/08/18 06/08/18 21:25 06:39 06:39 WBC 6.2 RBC 4.25 Hgb 13.1 L Hct 38 L MCV 88 MCH 31 MCHC 35 RDW 14 Plt Count 108 L MPV 8.8 Neut % (Auto) 64.5 Lymph % (Auto) 19.0 L [place] % (Auto) 12.8 H Eos % (Auto) 2.7 Baso % (Auto) 1.0 Absolute Neuts (auto) 4.0 Absolute Lymphs (auto) 1.2 Absolute Monos (auto) 0.8 Absolute Eos (auto) 0.2 Absolute Basos (auto) 0.1 Absolute Nucleated RBC 0 Nucleated RBC % 0.1 Sodium 138 Potassium 4.2 Chloride 108 Carbon Dioxide 27 Anion Gap 3 BUN 10 Creatinine 0.87 Est GFR ( Amer) 102.4 Est GFR (Non-Af Amer) 84.6 BUN/Creatinine Ratio 11.5 Glucose 137 H Calcium 8.4 L Vancomycin Trough 9.5 Microbiology 06/06/18 20:40 Gram Stain - Final Body Fluid Body Fluid Culture - Preliminary No Growth Day 2 06/06/18 19:54 Aerobic Blood Culture - Preliminary Blood Venous No Growth Day 1 Anaerobic Blood Culture - Preliminary No Growth Day 1 06/06/18 19:41 Aerobic Blood Culture - Preliminary Blood Venous No Growth Day 1 Anaerobic Blood Culture - Preliminary No Growth Day 1 right knee with some pre patellar edema, improving scab noted anteriorly no drainage,mild warmth, erythema much improved some calf and ankle edema noted calf non tender and soft sensation and circulation intact Assessment: []Prepatellar bursitis/ cellulitis, improving 2 day cultures negative Plan: []Regular diet as [place] Continue IV antibiotics for now, monitor for continued improvement and discharge on oral antibiotics when appropriate.
--- NOTE | 2018-06-08 16:48 | PN ---
Subjective Date of Service: 06/08/18 Interval History: Pt reports he continues to have RLE swelling reporting he has the most pain on his anterior james. There is noted redness on his james but he reports this has greatly improved. He is able to ambulate but reports some pain and discomfort with ambulation. He thinks it is slowly improving. Denies diarrhea. No fever or chills. Family History: Unchanged from Admission Social History: Unchanged from Admission Past Medical History: Unchanged from Admission Objective Active Medications: Acetaminophen (Tylenol Tab*) 650 mg PO Q6H PRN PRN Reason: pain/fever Bupropion HCl (Wellbutrin Sr Tab*) 150 mg PO DAILY [facility] Last Admin: 06/08/18 09:15 Dose: 150 mg Heparin Sodium (Porcine) (Heparin Vial(*)) 5,000 units SUBCUT Q8HR [facility] Last Admin: 06/08/18 14:03 Dose: 5,000 units Sodium Chloride (Ns 0.9% 1000 Ml*) 1,000 mls @ 75 mls/hr IV PER RATE [facility] Last Admin: 06/08/18 05:28 Dose: 75 mls/hr Vancomycin HCl 1,000 mg/ (Sodium Chloride) 250 mls @ 166.667 mls/hr IVPB Q8H [facility] Last Admin: 06/08/18 14:03 Dose: 166.667 mls/hr Ondansetron HCl (Zofran Inj*) 4 mg IV Q6H PRN PRN Reason: NAUSEA Pharmacy Consult (Vancomycin Per Pharmacy*) 1 note FOLLOW UP .VANC PER PHARMACY [facility] Pharmacy Profile Note (Vancomycin Trough Check) 1 note FOLLOW UP 0530 ONE Stop: 06/09/18 05:31 Sertraline HCl (Zoloft*) 150 mg PO QAM [facility] Last Admin: 06/08/18 09:15 Dose: 150 mg Tramadol HCl (Ultram*) 50 mg PO Q6H PRN PRN Reason: PAIN Vital Signs - 8 hr 06/08/18 06/08/18 09:59 11:37 Temperature 97.9 F Pulse Rate 57 Respiratory 16 Rate Blood Pressure 136/62 (mmHg) O2 Sat by Pulse 94 96 Oximetry Oxygen Devices in Use Now: None Appearance: A+O x3 in NAD Eyes: No Scleral Icterus, PERRLA Ears/Nose/Mouth/Throat: Mucous Membranes Moist Respiratory: Symmetrical Chest Expansion and Respiratory Effort, Clear to Auscultation Cardiovascular: NL Sounds; No Murmurs; No JVD, RRR Abdominal: NL Sounds; No Tenderness; No Distention Extremities: No Clubbing, Cyanosis, - - right knee with noted edema, erythema ( dark red) warm to touch - RLE is noted to have diffuse edema with noted small area of erythema on james. Toes are noted to have mild ecchymosis. Neurological: Alert and Oriented x 3, NL Sensation, NL Muscle Strength and Tone Lines/Tubes/Other Access: Clean, Dry and Intact Peripheral IV Nutrition: Taking PO's Result Diagrams: 06/08/18 06:39 06/08/18 06:39 Microbiology and Other Data: Microbiology 06/06/18 20:40 Gram Stain - Final Body Fluid Body Fluid Culture - Preliminary No Growth Day 1 Assess/Plan/Problems-Billing Assessment: Mr. Smallwood is a 78 y.o male with a hx of depression who prented to right knee pain, redness and swelling. - Patient Problems (1) Prepatellar bursitis Comment: with RLE cellulitis Right knee with abrasion due to trauma intially now with redness and swelling seen by Dr. Armijo - knee joint fluid aspirated found to be a hematoma - Ortho following- continue IV abx for now. - will continue on antibiotics for treatment of cellulitis - DC vanco -> cefazolin 1gm Q8hrs - Blood and wound cx negative for growth - repeat labs in am (2) Depression Comment: continue home medications supportive care (3) Full code status (4) DVT prophylaxis Comment: heparin subQ Status and Disposition: discharge home when medically stable
[2018-06-08] MEDS: ceFAZolin 1 GM in Dextrose (*) 1 GM/50 ML BAG IVPB SCH (19:51)
[2018-06-09] MEDS: ceFAZolin 1 GM in Dextrose (*) 1 GM/50 ML BAG IVPB SCH ×3 (04:21→20:10)
[2018-06-09 04:27] LABS: ABS Basophils 0.1 10^3/ul (0-0.2); ABS Eosinophils 0.2 10^3/ul (0-0.6); ABS Lymphocytes 1.1 10^3/ul (1.0-4.8); ABS Monocytes 0.8 10^3/ul (0-0.8); ABS Neutrophils 4.9 10^3/ul (1.5-7.7); ABS Nucleated RBC 0 10^3/ul; Eosinophil % 2.9 % (0-6); Hematocrit 38 % (42-52); Hemoglobin 13.2 g/dl (14.0-18.0); Lymphocyte % 15.3 % (25-47); Mean Corpuscular HGB Conc 35 g/dl (31-36); Mean Corpuscular Hemoglobin 31 pg (27-31); Mean Corpuscular Volume 88 fL (80-94); Mean Platelet Volume 9.1 fL (7.4-10.4); Nucleated Red Blood Cells % 0.1; Platelet Count 112 10^3/ul (150-450); Red Blood Count 4.32 10^6/ul (4.00-5.40); Red Cell Distribution Width 14 % (10.5-15); White Blood Count 7.1 10^3/ul (3.5-10.8)
[2018-06-09 04:37] LABS: EGFR Non-African American 83.5 (>60)
[2018-06-09] MEDS ORDERED: Vancomycin Trough Check NOTE FOLLOW UP ONE (05:30)
[2018-06-09] MEDS: Heparin VIAL(*) 5000 UNITS/ML VIAL (FIVE THOUSAND) SUBCUT SCH ×3 (05:45→21:25)
--- NOTE | 2018-06-09 09:49 | PN ---
Progress Note - Progress Note Date of Service: 06/09/18 SOAP: Subjective: OOB to chair with improving right knee pain. Continued pain distally around ankle/lower leg with continued warmth/redness and pain with ambulation Objective: Vital Signs Temp Pulse Resp BP Pulse Ox 98.1 F 59 24 129/54 95 06/09/18 02:54 06/09/18 02:54 06/09/18 02:54 06/09/18 02:54 06/09/18 02:54 Laboratory Last Values WBC 7.1 10^3/ul (3.5-10.8) 06/09/18 04:10 RBC 4.32 10^6/ul (4.00-5.40) 06/09/18 04:10 Hgb 13.2 g/dl (14.0-18.0) L 06/09/18 04:10 Hct 38 % (42-52) L 06/09/18 04:10 MCV 88 fL (80-94) 06/09/18 04:10 MCH 31 pg (27-31) 06/09/18 04:10 MCHC 35 g/dl (31-36) 06/09/18 04:10 RDW 14 % (10.5-15) 06/09/18 04:10 Plt Count 112 10^3/ul (150-450) L 06/09/18 04:10 MPV 9.1 fL (7.4-10.4) 06/09/18 04:10 Neut % (Auto) 69.9 % (38-83) 06/09/18 04:10 Lymph % (Auto) 15.3 % (25-47) L 06/09/18 04:10 [place] % (Auto) 11.0 % (0-7) H 06/09/18 04:10 Eos % (Auto) 2.9 % (0-6) 06/09/18 04:10 Baso % (Auto) 0.9 % (0-2) 06/09/18 04:10 Absolute Neuts (auto) 4.9 10^3/ul (1.5-7.7) 06/09/18 04:10 Absolute Lymphs (auto) 1.1 10^3/ul (1.0-4.8) 06/09/18 04:10 Absolute Monos (auto) 0.8 10^3/ul (0-0.8) 06/09/18 04:10 Absolute Eos (auto) 0.2 10^3/ul (0-0.6) 06/09/18 04:10 Absolute Basos (auto) 0.1 10^3/ul (0-0.2) 06/09/18 04:10 Absolute Nucleated RBC 0 10^3/ul 06/09/18 04:10 Nucleated RBC % 0.1 06/09/18 04:10 ESR 20 mm/Hr (0-40) 06/06/18 17:27 INR (Anticoag Therapy) 0.86 (0.77-1.02) 06/06/18 19:41 APTT 30.3 seconds (26.0-36.3) 06/06/18 19:41 Sodium 137 mmol/L (135-145) 06/09/18 04:10 Potassium 4.1 mmol/L (3.5-5.0) 06/09/18 04:10 Chloride 106 mmol/L (101-111) 06/09/18 04:10 Carbon Dioxide 25 mmol/L (22-32) 06/09/18 04:10 Anion Gap 6 mmol/L (2-11) 06/09/18 04:10 BUN 13 mg/dL (6-24) 06/09/18 04:10 Creatinine 0.88 mg/dL (0.67-1.17) 06/09/18 04:10 Est GFR ( Amer) 101.1 (>60) 06/09/18 04:10 Est GFR (Non-Af Amer) 83.5 (>60) 06/09/18 04:10 BUN/Creatinine Ratio 14.8 (8-20) 06/09/18 04:10 Glucose 116 mg/dL (70-100) H 06/09/18 04:10 Lactic Acid 0.5 mmol/L (0.5-2.0) 06/06/18 19:41 Calcium 8.7 mg/dL (8.6-10.3) 06/09/18 04:10 Magnesium 2.0 mg/dL (1.9-2.7) 06/09/18 04:10 Total Bilirubin 0.70 mg/dL (0.2-1.0) 11/14/18 17:27 AST 20 U/L (13-39) 06/06/18 19:41 ALT 18 U/L (7-52) 06/06/18 17:27 Alkaline Phosphatase 56 U/L (34-104) 06/06/18 17:27 C-Reactive Protein 8.86 mg/L (<8.01) H 06/09/18 04:10 Total Protein 6.8 g/dL (6.4-8.9) 06/06/18 17:27 Albumin 4.3 g/dL (3.2-5.2) 06/06/18 17:27 Globulin 2.5 g/dL (2-4) 06/06/18 17: Albumin/Globulin Ratio 1.7 (1-3) 06/06/18 17:27 Urine Color Yellow 06/06/18 19:00 Urine Appearance Clear 06/06/18 19:00 Urine pH 5.0 (5-9) 06/06/18 19:00 Ur Specific [place] 1.011 (1.010-1.030) 06/06/18 19:00 Urine Protein Negative (Negative) 06/06/18 19:00 Urine Ketones Negative (Negative) 06/06/18 19:00 Urine Blood Negative (Negative) 06/06/18 19:00 Urine Nitrate Negative (Negative) 06/06/18 19:00 Urine Bilirubin Negative (Negative) 06/06/18 19:00 Urine Urobilinogen Negative (Negative) 06/06/18 19:00 Ur Leukocyte Esterase Negative (Negative) 06/06/18 19:00 Urine Glucose Negative (Negative) 06/06/18 19:00 Vancomycin Trough 9.5 mcg/mL 06/07/18 21:25 PE: right knee bursa continues to improve, mild erythema of knee; distal cellulitis remains but is improved. 2+ DP pulse with intact sensation. TTTP around lower leg and ankle Assessment: RLE cellulitis/ improved right knee bursitis Plan: 1) will order xray Right lower leg and ankle to R/U any bone involvement 2) continue Abx for RLE cellulitis 3) WBAT RLE
[2018-06-09] MEDS: buPROPion SR TAB.SR* 150 MG PO SCH (10:28)
[2018-06-09] MEDS: Sertraline* 50 MG TAB PO SCH (10:28)
[2018-06-09] MEDS: NS 0.9% 1000 ML* 1,000 ML IV SCH (12:28)
--- NOTE | 2018-06-09 12:59 | PN ---
Progress Note - Progress Note Date of Service: 06/08/18 Note: Ramon was seen on rounds Monday evening. His knee is feeling better. The lower leg continues to be sore and swollen. AVSS Awake and alert, very pleasant Skin shows some hyperemia about the anterior knee and some erythema in the medial anterior lower leg that is mildly tender. Good knee flexion and extension, minimally tender over anterior knee. A/P: Prepatellar bursa aspiration with hematoma and no growth on cultures, Right lower leg cellulitis and edema Recommend elevation and continued antibiotics. No surgery at this time.
--- NOTE | 2018-06-09 13:01 | PN ---
Progress Note - Progress Note Date of Service: 06/09/18 Note: Ramon was seen on rounds this morning. His knee is continuing to feel better. The lower leg continues to be sore and swollen. Xrays were ordered due to the large amount of edema. AVSS Awake and alert, very pleasant Skin shows some hyperemia about the anterior knee and some erythema in the medial anterior lower leg that is mildly tender. Good knee flexion and extension, minimally tender over anterior knee. Xrays negative for bony or significant soft tissue abnormality. A/P: Prepatellar bursa aspiration with hematoma and no growth on cultures, Right lower leg cellulitis and edema. No bony injury. Recommend elevation and continued antibiotics. No surgery at this time. May follow up if discharged.
--- NOTE | 2018-06-09 15:19 | PN ---
Subjective Date of Service: 06/09/18 Interval History: Patient reports he feels a little better today. He reports his RLE soreness and pain has "greatly improved". He denies N/V/D. Denies fever or chills. Continues to have RLE swelling from knee to toes. Is able to bear full weight Family History: Unchanged from Admission Social History: Unchanged from Admission Past Medical History: Unchanged from Admission Objective Active Medications: Acetaminophen (Tylenol Tab*) 650 mg PO Q6H PRN PRN Reason: pain/fever Bupropion HCl (Wellbutrin Sr Tab*) 150 mg PO DAILY [facility] Last Admin: 06/09/18 10:28 Dose: 150 mg Heparin Sodium (Porcine) (Heparin Vial(*)) 5,000 units SUBCUT Q8HR [facility] Last Admin: 06/09/18 14:37 Dose: 5,000 units Sodium Chloride (Ns 0.9% 1000 Ml*) 1,000 mls @ 75 mls/hr IV PER RATE [facility] Last Admin: 06/09/18 12:28 Dose: 75 mls/hr Cefazolin Sodium/Dextrose (Kefzol 1 Gm In Dextrose Duplex (*)) 1 gm in 50 mls @ 200 mls/hr IVPB Q8H [facility] Last Admin: 06/09/18 12:25 Dose: 200 mls/hr Ondansetron HCl (Zofran Inj*) 4 mg IV Q6H PRN PRN Reason: NAUSEA Sertraline HCl (Zoloft*) 150 mg PO QAM [facility] Last Admin: 06/09/18 10:28 Dose: 150 mg Tramadol HCl (Ultram*) 50 mg PO Q6H PRN PRN Reason: PAIN Vital Signs - 8 hr 06/09/18 12:08 Temperature 97.9 F Pulse Rate 56 Respiratory 18 Rate Blood Pressure 130/58 (mmHg) O2 Sat by Pulse 96 Oximetry Oxygen Devices in Use Now: None Appearance: A+O x3 elderly male in NAD Eyes: PERRLA Ears/Nose/Mouth/Throat: Mucous Membranes Moist Neck: NL Appearance and Movements; NL JVP Respiratory: Symmetrical Chest Expansion and Respiratory Effort, Clear to Auscultation Cardiovascular: NL Sounds; No Murmurs; No JVD, RRR Abdominal: NL Sounds; No Tenderness; No Distention Extremities: - - RLE edema from knee to toes - toes are ecchymosis. erythema on anterior james appears the same as yesterday Skin: No Rash or Ulcers, No Nodules or Sclerosis Neurological: Alert and Oriented x 3, NL Sensation, NL Muscle Strength and Tone Result Diagrams: 06/09/18 04:10 06/09/18 04:10 Microbiology and Other Data: Microbiology 06/06/18 20:40 Gram Stain - Final Body Fluid Body Fluid Culture - Preliminary No Growth Day 1 Assess/Plan/Problems-Billing Assessment: Mr. Smallwood is a 78 y.o male with a hx of depression who prented to right knee pain, redness and swelling. - Patient Problems (1) Prepatellar bursitis Comment: Improving with RLE cellulitis Right knee with abrasion due to trauma intially now with redness and swelling seen by Dr. Armijo - knee joint fluid aspirated found to be a hematoma - Ortho following- continue IV abx for now. - will continue on antibiotics for treatment of cellulitis - DC vanco -> cefazolin 1gm Q8hrs started 06/08 - Blood and wound cx negative for growth - repeat labs in am (2) Depression Comment: continue home medications supportive care (3) Full code status (4) DVT prophylaxis Comment: heparin subQ Status and Disposition: discharge home when medically stable
[2018-06-10] MEDS: ceFAZolin 1 GM in Dextrose (*) 1 GM/50 ML BAG IVPB SCH ×2 (03:58→11:55)
[2018-06-10] MEDS: NS 0.9% 1000 ML* 1,000 ML IV SCH (03:59)
[2018-06-10] MEDS: Heparin VIAL(*) 5000 UNITS/ML VIAL (FIVE THOUSAND) SUBCUT SCH (05:40)
[2018-06-10 06:00] LABS: ABS Basophils 0.1 10^3/ul (0-0.2); ABS Eosinophils 0.2 10^3/ul (0-0.6); ABS Lymphocytes 0.9 10^3/ul (1.0-4.8); ABS Monocytes 0.7 10^3/ul (0-0.8); ABS Neutrophils 3.9 10^3/ul (1.5-7.7); ABS Nucleated RBC 0 10^3/ul; Eosinophil % 2.7 % (0-6); Hematocrit 39 % (42-52); Hemoglobin 13.8 g/dl (14.0-18.0); Lymphocyte % 16.3 % (25-47); Mean Corpuscular HGB Conc 35 g/dl (31-36); Mean Corpuscular Hemoglobin 31 pg (27-31); Mean Corpuscular Volume 87 fL (80-94); Nucleated Red Blood Cells % 0.1; Platelet Count 110 10^3/ul (150-450); Red Blood Count 4.52 10^6/ul (4.00-5.40); Red Cell Distribution Width 14 % (10.5-15); White Blood Count 5.8 10^3/ul (3.5-10.8)
[2018-06-10 06:21] LABS: EGFR Non-African American 90.6 (>60)
--- NOTE | 2018-06-10 09:12 | PN ---
Progress Note - Progress Note Date of Service: 06/10/18 SOAP: Subjective: OOB to chair with improving right knee and LE pain Objective: Vital Signs Temp Pulse Resp BP Pulse Ox 97.5 F 53 26 131/53 93 06/10/18 03:29 06/10/18 03:29 06/10/18 03:29 06/10/18 03:29 06/10/18 03:29 Laboratory Last Values WBC 5.8 10^3/ul (3.5-10.8) 06/10/18 05:41 RBC 4.52 10^6/ul (4.00-5.40) 06/10/18 05:41 Hgb 13.8 g/dl (14.0-18.0) L 06/10/18 05:41 Hct 39 % (42-52) L 06/10/18 05:41 MCV 87 fL (80-94) 06/10/18 05:41 MCH 31 pg (27-31) 06/10/18 05:41 MCHC 35 g/dl (31-36) 06/10/18 05:41 RDW 14 % (10.5-15) 06/10/18 05:41 Plt Count 110 10^3/ul (150-450) L 06/10/18 05:41 MPV 9.0 fL (7.4-10.4) 06/10/18 05:41 Neut % (Auto) 68.3 % (38-83) 06/10/18 05:41 Lymph % (Auto) 16.3 % (25-47) L 06/10/18 05:41 Burt % (Auto) 11.8 % (0-7) H 06/10/18 05:41 Eos % (Auto) 2.7 % (0-6) 06/10/18 05:41 Baso % (Auto) 0.9 % (0-2) 06/10/18 05:41 Absolute Neuts (auto) 3.9 10^3/ul (1.5-7.7) 06/10/18 05:41 Absolute Lymphs (auto) 0.9 10^3/ul (1.0-4.8) L 06/10/18 05:41 Absolute Monos (auto) 0.7 10^3/ul (0-0.8) 06/10/18 05:41 Absolute Eos (auto) 0.2 10^3/ul (0-0.6) 06/10/18 05:41 Absolute Basos (auto) 0.1 10^3/ul (0-0.2) 06/10/18 05:41 Absolute Nucleated RBC 0 10^3/ul 06/10/18 05:41 Nucleated RBC % 0.1 06/10/18 05:41 ESR 20 mm/Hr (0-40) 06/06/18 17:27 INR (Anticoag Therapy) 0.86 (0.77-1.02) 06/06/18 19:41 APTT 30.3 seconds (26.0-36.3) 06/06/18 19:41 Sodium 136 mmol/L (135-145) 06/10/18 05:41 Potassium 4.0 mmol/L (3.5-5.0) 06/10/18 05:41 Chloride 105 mmol/L (101-111) 06/10/18 05:41 Carbon Dioxide 26 mmol/L (22-32) 06/10/18 05:41 Anion Gap 5 mmol/L (2-11) 06/10/18 05:41 BUN 12 mg/dL (6-24) 06/10/18 05:41 Creatinine 0.82 mg/dL (0.67-1.17) 06/10/18 05:41 Est GFR ( Amer) 109.7 (>60) 06/10/18 05:41 Est GFR (Non-Af Amer) 90.6 (>60) 06/10/18 05:41 BUN/Creatinine Ratio 14.6 (8-20) 06/10/18 05:41 Glucose 133 mg/dL (70-100) H 06/10/18 05:41 Lactic Acid 0.5 mmol/L (0.5-2.0) 06/06/18 19:41 Calcium 8.9 mg/dL (8.6-10.3) 06/10/18 05:41 Magnesium 2.0 mg/dL (1.9-2.7) 06/09/18 04:10 Total Bilirubin 0.70 mg/dL (0.2-1.0) 06/06/18 17:27 AST 20 U/L (13-39) 11/14/18 19:41 ALT 18 U/L (7-52) 06/06/18 17:27 Alkaline Phosphatase 56 U/L (34-104) 06/06/18 17:27 C-Reactive Protein 8.86 mg/L (<8.01) H 06/09/18 04:10 Total Protein 6.8 g/dL (6.4-8.9) 06/06/18 17:27 Albumin 4.3 g/dL (3.2-5.2) 06/06/18 17:27 Globulin 2.5 g/dL (2-4) 06/06/18 17:27 Albumin/Globulin Ratio 1.7 (1-3) 06/06/18 17:27 Urine Color Yellow 06/06/18 19:00 Urine Appearance Clear 06/06/18 19:00 Urine pH 5.0 (5-9) 06/06/18 19:00 Ur Specific [place] 1.011 (1.010-1.030) 06/06/18 19:00 Urine Protein Negative (Negative) 06/06/18 19:00 Urine Ketones Negative (Negative) 06/06/18 19:00 Urine Blood Negative (Negative) 06/06/18 19:00 Urine Nitrate Negative (Negative) 06/06/18 19:00 Urine Bilirubin Negative (Negative) 06/06/18 19:00 Urine Urobilinogen Negative (Negative) 06/06/18 19:00 Ur Leukocyte Esterase Negative (Negative) 06/06/18 19:00 Urine Glucose Negative (Negative) 06/06/18 19:00 Vancomycin Trough 9.5 mcg/mL 06/07/18 21:25 PE: improved RLE cellulitis; improved swelling right knee Assessment: right knee bursitis and RLE cellulitis Plan: 1) xray right ankle and RLE negative for fracture or bony involvement 2) continue abx 3) hospitalist co-managing
[2018-06-10] MEDS: Sertraline* 50 MG TAB PO SCH (09:52)
[2018-06-10] MEDS: buPROPion SR TAB.SR* 150 MG PO SCH (09:52)
[2018-06-10 10:31] VITALS: BP 127/56
--- NOTE | 2018-06-10 10:57 | DCNOTE ---
Subjective Date of Service: 06/10/18 Interval History: Patient reports he is feeling much better today with less swelling and pain in his RLE. Denies fever or chills. No N/V/D. Patient would like to go home. Discussed DC instructions and patient agrees with plan Family History: Unchanged from Admission Social History: Unchanged from Admission Past Medical History: Unchanged from Admission Objective Active Medications: Acetaminophen (Tylenol Tab*) 650 mg PO Q6H PRN PRN Reason: pain/fever Bupropion HCl (Wellbutrin Sr Tab*) 150 mg PO DAILY [facility] Last Admin: 06/10/18 09:52 Dose: 150 mg Heparin Sodium (Porcine) (Heparin Vial(*)) 5,000 units SUBCUT Q8HR [facility] Last Admin: 06/10/18 05:40 Dose: 5,000 units Sodium Chloride (Ns 0.9% 1000 Ml*) 1,000 mls @ 75 mls/hr IV PER RATE [facility] Last Admin: 06/10/18 03:59 Dose: 75 mls/hr Cefazolin Sodium/Dextrose (Kefzol 1 Gm In Dextrose Duplex (*)) 1 gm in 50 mls @ 200 mls/hr IVPB Q8H [facility] Last Admin: 06/10/18 03:58 Dose: 200 mls/hr Ondansetron HCl (Zofran Inj*) 4 mg IV Q6H PRN PRN Reason: NAUSEA Sertraline HCl (Zoloft*) 150 mg PO QAM [facility] Last Admin: 06/10/18 09:52 Dose: 150 mg Tramadol HCl (Ultram*) 50 mg PO Q6H PRN PRN Reason: PAIN Vital Signs - 8 hr 06/10/18 06/10/18 06/10/18 03:29 07:12 09:45 Temperature 97.5 F 96.8 F Pulse Rate 53 60 Respiratory 26 16 16 Rate Blood Pressure 131/53 127/56 (mmHg) O2 Sat by Pulse 93 98 98 Oximetry Oxygen Devices in Use Now: None Appearance: 78 yo male A+O x3 sitting up in a chair reading newspapaer in NAD Eyes: PERRLA Ears/Nose/Mouth/Throat: Mucous Membranes Moist Neck: NL Appearance and Movements; NL JVP Respiratory: Symmetrical Chest Expansion and Respiratory Effort, Clear to Auscultation Cardiovascular: NL Sounds; No Murmurs; No JVD, RRR Abdominal: NL Sounds; No Tenderness; No Distention Extremities: No Clubbing, Cyanosis, - - RLE knee is moderately swollen with quarter size scab in center of knee - full rom, no erythema or drainage. RLE anterior james area of cellulitis erythema is almost resolved. Non tender to touch. RLE has mild diffuse edema that is improving daily. Neurological: Alert and Oriented x 3, NL Sensation, NL Gait, NL Muscle Strength and Tone Lines/Tubes/Other Access: Clean, Dry and Intact Peripheral IV Nutrition: Taking PO's Result Diagrams: 06/10/18 05:41 06/10/18 05:41 Microbiology and Other Data: Microbiology 06/06/18 20:40 Gram Stain - Final Body Fluid Body Fluid Culture - Preliminary No Growth Day 1 Assess/Plan/Problems-Billing Assessment: Mr. Smallwood is a 78 y.o male with a hx of depression who prented to right knee pain, redness and swelling. - Patient Problems (1) Prepatellar bursitis Comment: Improving with RLE cellulitis Right knee with abrasion due to trauma intially which then developed in tp redness and swelling - seen by Dr. Armijo - knee joint fluid aspirated found to be a hematoma - Ortho following-ok to DC to home on oral abx and f/u with orth as outpt - cellulitis on RLE anterior james -much improvement - switch to keflex on DC - Blood and wound cx negative for growth (2) Depression Comment: continue home medications supportive care (3) Full code status (4) DVT prophylaxis Comment: heparin subQ Status and Disposition: discharge home today with f/u with Orth this week and PCP.
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
== END 2018-06-10 13:30 | disposition home or self-care (01) | DRG 558 ==
LOC: MED 15:17 → UNDOADMIN 15:17 → MED 16:00 → INTOOBSV 16:27 → OBSVTOIN 06-08 16:00
PROVIDERS: ADMIT Internal Medicine; ATTEND Internal Medicine
PROC: 0S9C3ZX Drainage of Right Knee Joint, Percutaneous Approach, Diagnostic (ICD-10-PCS; principal; 2018-06-07)
DX: M70.41 Prepatellar bursitis, right knee (principal); L03.115 Cellulitis of right lower limb; L71.9 Rosacea, unspecified; M25.461 Effusion, right knee; I10 Essential (primary) hypertension; G47.30 Sleep apnea, unspecified; F32.9 Major depressive disorder, single episode, unspecified; S80.211A Abrasion, right knee, initial encounter; W18.09XA Striking against other object with subsequent fall, initial encounter; R73.03 Prediabetes; Z85.46 Personal history of malignant neoplasm of prostate; Z85.828 Personal history of other malignant neoplasm of skin; Z98.49 Cataract extraction status, unspecified eye; Z80.6 Family history of leukemia; Z82.5 Family history of asthma and other chronic lower respiratory diseases; Z98.42 Cataract extraction status, left eye; Z98.41 Cataract extraction status, right eye; Z90.79 Acquired absence of other genital organ(s); Z91.018 Allergy to other foods; Y92.89 Other specified places as the place of occurrence of the external cause
CPT/HCPCS: 36415; 80048; 80053; 80202; 81003; 83036; 83605; 83735; 85025; 85610; 85652; 85730; 86140; 87040; 87070; 87205; A9270-GY; G0378; J0690; J1644; J3370

== ENCOUNTER 2019-08-06 09:57 | Emergency (ER) | payer OTHER ==
[2019-08-06 10:12] VITALS: BP 147/71
--- NOTE | 2019-08-06 12:13 | UC ---
Skin Complaint HPI - HPI Summary HPI Summary: Patient is an 79-year-old male presenting with wound on right james that he believes may be infected. States he hit his chin on the coffee table "less than a week ago." States that he has noticed increased redness and warmth to the area for the last 2 days. Denies drainage from the area. States he is concerned for cellulitis, as he was hospitalized for it for 3 days last year. Denies MRSA infection in the past. Denies fever and chills. Denies nausea and vomiting. - History of Current Complaint Chief Complaint: UCWounds Stated Complaint: WOUND ON JAMES Hx Obtained From: Patient Pain Intensity: 1 Pain Scale Used: 0-10 Numeric - Allergy/Home Medications Allergies/Adverse Reactions: Allergies Allergy/AdvReac Type Severity Reaction Status Date / Time dust mites Allergy Intermediate post nasal Uncoded 08/06/19 10:12 drip pepper Allergy Unknown Unknown Uncoded 08/06/19 10:12 Reaction Details Home Medications: Home Medications Calcium Carb,Gluc/Mag Ox,Gluc [Calcium Magnesium Caplet] 1 tab PO DAILY [History Confirmed 08/06/19] PMH/Surg Hx/FS Hx/Imm Hx Other History Of: Negative For: HIV, Hepatitis B, Hepatitis C, Anticoagulant Therapy - denies today, including ASA - Surgical History Surgical History: Yes Surgery Procedure, Year, and Place: 1942 TONSILECTOMY;. 1957- HEMORROIDECTOMY; . 1992- Rt ACHILLES TENDON REPAIR;. 1997- RADICAL PROSTECTOMY;. BASAL CELLS REMOVED FROM Lt CHEEK. LEFT BICEP TENDON REATTACHMENT 2012. Bilateral cataract surgery. - Family History Known Family History: Positive: Hypertension Negative: Cardiac Disease, Diabetes - Social History Alcohol Use: Weekly Substance Use Type: None Smoking Status (MU): Never Smoked Tobacco - Immunization History Most Recent Influenza Vaccination: fall 2017 Most Recent Tetanus Shot: unknown Most Recent Pneumonia Vaccination: <5yrs Review of Systems All Other Systems Reviewed And Are Negative: Yes Constitutional: Positive: Negative. Negative: Fever, Chills Skin: Positive: Other - "redness and warmth around wound on R james" Respiratory: Positive: Negative Cardiovascular: Positive: Negative Gastrointestinal: Positive: Negative. Negative: Vomiting, Nausea Musculoskeletal: Positive: Negative Neurological: Positive: Negative Physical Exam Triage Information Reviewed: Yes Appearance: Well-Appearing, No Pain Distress, Well-Nourished Vital Signs: Initial Vital Signs Temp 98.7 F 08/06/19 10:08 Pulse 75 08/06/19 10:08 Resp 20 08/06/19 10:08 BP 147/71 08/06/19 10:08 Pulse Ox 100 08/06/19 10:08 Vital Signs Reviewed: Yes Eyes: Positive: Conjunctiva Clear ENT: Positive: Hearing grossly normal Neck: Positive: Supple Respiratory Exam: Normal Respiratory: Positive: Lungs clear, Normal breath sounds, No respiratory distress Cardiovascular Exam: Normal Cardiovascular: Positive: RRR, No Murmur Musculoskeletal: Positive: No Edema Neurological Exam: Other - sensation grossly intact Neurological: Positive: Alert Psychological: Positive: Age Appropriate Behavior Skin: Positive: Other - two healing abrasions noted on mid anterior james ~1.5cm long and 0.5cm wide each. erythema and warmth extending ~1cm around abrasions. minimally tender to palpation. no drainage or bleeding. no fluctuance Course/Dx - Course Course Of Treatment: Treated patient with bactrim for cellulitis and instructed to continue with symptomatic care. Educated on s/s of worsening infection and instructed to return or go to ED with worsening symptoms. Instructed to follow up with pcp for recheck of wound within 1 week. Patient voiced understanding and agreed with treatment plan. - Diagnoses Provider Diagnosis: Cellulitis of right lower leg Discharge ED - Sign-Out/Discharge Documenting (check all that apply): Patient Departure All imaging exams completed and their final reports reviewed: No Studies - Discharge Plan Condition: Stable Disposition: HOME Prescriptions: Sulfamethox/Trimethoprim DS* [Bactrim DS 800/160 TAB*] 1 tab PO BID #14 tab Patient Education Materials: Cellulitis (ED) Referrals: Pippa Peters MD [Primary Care Provider] - 1 Week Additional Instructions: Take Bactrim as prescribed for the treatment of your skin infection. Keep the area clean and dry. You may apply warm compresses to the area for 10-20 minutes 2-3 times daily. Follow up with your primary care physician listed below within the next week to recheck the area. Go to the emergency room if you experience fever, increasing redness and warmth to the area, drainage, severe pain, or nausea and vomiting. - Billing Disposition and Condition Condition: STABLE Disposition: Home - Attestation Statements Provider Attestation: This patient was not seen by me. I was available for consult. Chart reviewed. LUC
== END 2019-08-06 12:10 | disposition home or self-care (01) ==
LOC: UCEAST 09:57
DX: L03.115 Cellulitis of right lower limb (principal); Z91.018 Allergy to other foods; Z91.09 Other allergy status, other than to drugs and biological substances
CPT/HCPCS: 99212; G0463